=== PATIENT | male | born 1950 | race Caucasian/White ===

== ENCOUNTER 2023-03-14 10:30 | Outpatient (RCR) | payer MEDICARE, BC | END 2023-03-16 | LOC: WSPT | DX: M17.0 Bilateral primary osteoarthritis of knee (principal); Z96.651 Presence of right artificial knee joint ==

== ENCOUNTER → 2023-04-16 | Outpatient (RCR) | payer MEDICARE, BC | END | disposition home or self-care (01) | LOC: WSOT | DX: M25.522 Pain in left elbow (principal) ==

== ENCOUNTER → 2023-04-16 | Outpatient (RCR) | payer MEDICARE, BC | LOC: WSPT | DX: M17.0 Bilateral primary osteoarthritis of knee (principal); Z96.651 Presence of right artificial knee joint ==

== ENCOUNTER 2023-05-14 10:00 | Outpatient (RCR) | payer MEDICARE, BC | END 2023-05-15 | disposition home or self-care (01) | LOC: WSOT | DX: M25.522 Pain in left elbow (principal) ==

== ENCOUNTER 2023-05-14 10:30 | Outpatient (RCR) | payer MEDICARE, BC | END 2023-05-15 | disposition home or self-care (01) | LOC: WSPT | DX: M17.0 Bilateral primary osteoarthritis of knee (principal); Z96.651 Presence of right artificial knee joint ==

== ENCOUNTER 2023-09-17 17:45 | Emergency (ER) | payer MEDICARE, BC ==
[~2023-09-17] VITALS: Ht 182.9 cm; Wt 95.5 kg
[2023-09-17 17:55] VITALS: TEMP 98.4
[2023-09-17 18:53] LABS: BASO # 0.1 K/mm3 (0.0-0.2); BASO % 0.8 % (0.0-2.0); EOS # 0.6 K/mm3 (0.0-0.7); EOS % 4.1 % (0.0-4.0); GRAN # 10.2 K/mm3 (1.4-6.5); GRAN % 70.9 % (42.2-75.2); HEMATOCRIT 44.6 % (42.0-52.0); HEMOGLOBIN 14.9 g/dl (13.5-18.0); LYMPH # 2.1 K/mm3 (1.2-3.4); LYMPH % 14.7 % (20.0-51.0); MEAN CELL VOLUME 91 fl (80.0-100.0); MEAN CORPUSCULAR HEMOGLOBIN 31 pg (27-31); MEAN CORPUSCULAR HGB CONC 33 g/dl (33.0-37.0); MEAN PLATELET VOLUME 9.3 fl (7.4-10.4); MONO # 1.3 K/mm3 (0.1-0.6); MONO % 8.8 % (1.7-9.3); PLATELET COUNT 331 K/mm3 (130-400); RED BLOOD COUNT 4.88 M/mm3 (4.20-5.60); REDCELL DISTRIBUTION WIDTH-CV 13.8 % (11.5-14.5)
[2023-09-17 19:02] LABS: ERYTHROCYTE SEDIMENTATION RATE 7 mm/hr (0-30)
[2023-09-17 19:09] LABS: C-REACTIVE PROTEIN 0.15 mg/dL (0.00-0.50); CALCIUM 9.2 mg/dL (8.4-10.2); CREATININE, serum 0.98 mg/dL (0.72-1.25)
[2023-09-17] MEDS ORDERED: Home HYDROcodone/Acetaminophen 5/325 MG #4 TABS/PACK PO ONE (19:30)
[2023-09-17 19:44] VITALS: BP 145/76; PULSE 64
== END 2023-09-17 19:48 | disposition home or self-care (01) ==
LOC: COL.ER 17:45
PROVIDERS: Physician Assistant
DX: M25.461 Effusion, right knee (principal); Z79.01 Long term (current) use of anticoagulants